=== PATIENT | female | born 1970 | race Hispanic/Latino ===

== ENCOUNTER 2024-08-13 22:08 | Observation (INO) | payer SELFPAY ==
[~2024-08-13 22:08] MED LIST: Iopamidol 370 76% 100 ML VIAL ONE
[2024-08-13 22:42] LABS: #Basophils 0.04 10x3/uL (0.0-0.2); #Eosinphils 0.15 10x3/uL (0.0-0.5); #Neutrophils 2.89 10x3/uL (1.5-8.4); %Basophils 0.8 % (0.0-2.0); %Eosinophils 2.8 % (0.0-6.0); %Lymphocytes 32.5 % (18.0-47.0); %Monocytes 9.4 % (0.0-10.0); %Neutrophils 54.3 % (40.0-75.0); Hematocrit 41.3 % (34.9-44.5); Hemoglobin 14.8 g/dL (12.0-15.5); Mean Corpuscular HGB CONC 35.8 g/dL (32.0-36.0); Mean Corpuscular Hemoglobin 31.9 pg (27.0-33.0); Mean Platelet Volume 12.8 fL (7.4-10.4); Platelet Count 169 10x3/uL (150-450); RBC Distribution Width 12.9 % (11.5-14.5); Red Blood Cell (RBC) Count 4.64 10x6/uL (3.90-5.03); White Blood Cell (WBC) Count 5.3 10x3/uL (3.5-10.5)
[2024-08-13 22:52] LABS: PTT 28.5 sec (22.0-33.0); Prothrombin Time 11.1 sec (9.5-12.1)
[2024-08-13 23:03] LABS: ALT (SGPT) 36 U/L (8-55); AST (SGOT) 31 U/L (5-34); Albumin 3.8 g/dL (3.5-5.0); Alkaline Phosphatase 76 U/L (40-110); Anion Gap 15 mmol/L (10-20); BUN (Urea Nitrogen) 19 mg/dL (9.8-20.1); Bilirubin, Total 0.4 mg/dL (0.2-1.2); Calc. Creatinine Clearance 0 mL/min (70-130); Calcium 9.9 mg/dL (7.8-10.44); Carbon Dioxide 22 mmol/L (22-29); Chloride 100 mmol/L (98-107); Estimated GFR 78; Globulin 5.6 g/dL (2.4-3.5); Glucose 121 mg/dL (70-105); Potassium 3.8 mmol/L (3.5-5.1); Protein, Total 9.4 g/dL (6.0-8.3); Sodium 133 mmol/L (136-145)
[2024-08-13] MEDS ORDERED: niCARdipine 25 MG/10 ML SDV ONE (23:35)
[2024-08-13 23:41] LABS: Bilirubin Neg (Negative); Blood, Urine Negative (Negative); Clarity Clear (Clear); Glucose, Urine (Dipstick) Normal (Negative); Ketone, Urine Negative (Negative); Leukocyte Negative (Negative); Nitrite Negative (Negative); Protein, Urine (Dipstick) 100 mg/dl (Neg-Trace); Urobilinogen Normal mg/dL (Less than 2); pH, Urine 6.5 (5.0-9.0)
[2024-08-14 00:03] LABS: Bacteria/HPF Rare-Few HPF (None Seen); CAUTI Indications for Culture Alt mental st,lethar; RBC/HPF 0-3 HPF (0-3); Squamous Epithelial 0-3 HPF (0-3); WBC/HPF 0-3 HPF (0-3)
[2024-08-14 00:04] LABS: Urine Culture Reflex No No
[2024-08-14] MEDS ORDERED: Acetaminophen 325 MG TAB ONE (00:58)
[2024-08-14] MEDS ORDERED: Dextrose 5% in Water 1,000 ML IV PRN (02:53)
[2024-08-14] MEDS ORDERED: Dextrose 50% Abboject 50 ML SYRINGE SLOW IVP PRN (02:53)
[2024-08-14] MEDS ORDERED: Glucagon 1 MG/ML KIT IM PRN (02:53)
[2024-08-14] MEDS ORDERED: Aspirin Chewable 81 MG TAB ONE (03:45)
[2024-08-14] MEDS ORDERED: Potassium Chloride 20 MEQ TAB ONE (03:46)
[2024-08-14] MEDS: Aspirin Chewable 81 MG TAB PO SCH (03:57)
[2024-08-14] MEDS: Artificial Tear Ophth Sol 15 ML BOT L EYE SCH (03:57)
[2024-08-14] MEDS: Potassium Chloride 20 MEQ TAB PO SCH (03:57)
[2024-08-14 05:30] LABS: #Basophils 0.04 10x3/uL (0.0-0.2); #Eosinphils 0.17 10x3/uL (0.0-0.5); #Monocytes 0.51 10x3/uL (0.0-1.1); #Neutrophils 3.13 10x3/uL (1.5-8.4); %Basophils 0.7 % (0.0-2.0); %Eosinophils 3.2 % (0.0-6.0); %Lymphocytes 27.5 % (18.0-47.0); %Monocytes 9.6 % (0.0-10.0); %Neutrophils 58.6 % (40.0-75.0); Hematocrit 37.9 % (34.9-44.5); Hemoglobin 13.7 g/dL (12.0-15.5); Mean Corpuscular HGB CONC 36.1 g/dL (32.0-36.0); Mean Corpuscular Volume 88.6 fL (81.6-98.3); Platelet Count 157 10x3/uL (150-450); RBC Distribution Width 13.1 % (11.5-14.5); Red Blood Cell (RBC) Count 4.28 10x6/uL (3.90-5.03); White Blood Cell (WBC) Count 5.3 10x3/uL (3.5-10.5)
[2024-08-14 06:31] LABS: Anion Gap 13 mmol/L (10-20); BUN (Urea Nitrogen) 20 mg/dL (9.8-20.1); Calc. Creatinine Clearance 0 mL/min (70-130); Calcium 9.1 mg/dL (7.8-10.44); Carbon Dioxide 23 mmol/L (22-29); Cardiac Risk 7.2 (Less than 4.5); Chloride 103 mmol/L (98-107); Cholesterol 159 mg/dl (< 200 Desired); Estimated GFR 89; Glucose 128 mg/dL (70-105); HDL Cholesterol 22 mg/dL (>60 Neg Risk); Potassium 3.8 mmol/L (3.5-5.1); Sodium 135 mmol/L (136-145); Triglycerides 557 mg/dL (Less than 150)
[2024-08-14] MEDS: Levothyroxine Sodium 100 MCG TAB PO SCH (06:43)
[2024-08-14] MEDS ORDERED: Enoxaparin 40 MG (0.4 mL) SYRINGE ONE (08:03)
[2024-08-14] MEDS ORDERED: predniSONE 20 MG TAB ONE (08:03)
[2024-08-14] MEDS ORDERED: Aspirin 81 mg Enteric Coated Tablet ONE (08:04)
[2024-08-14] MEDS: Aspirin 81 mg Enteric Coated Tablet PO SCH (09:45)
[2024-08-14] MEDS: Lisinopril 20 MG TAB PO SCH (09:46)
[2024-08-14] MEDS: Enoxaparin 40 MG (0.4 mL) SYRINGE SC SCH (09:46)
[2024-08-14] MEDS: Hydrochlorothiazide 25 MG TAB PO SCH (09:46)
[2024-08-14] MEDS: predniSONE 20 MG TAB PO SCH (11:45)
[2024-08-14 14:10] LABS: Hemoglobin A1c 5.8 % (4.0-6.0)
[2024-08-14 15:38] VITALS: BMI 29.2
[2024-08-14] MEDS: valACYclovir 500 MG TAB PO SCH (16:00)
[2024-08-14] MEDS ORDERED: Artificial Tear Ophth Sol 15 ML BOT L EYE SCH (17:00)
[2024-08-14] MEDS: FLU (Fluarix Triv) TS24-25(6MOS UP)/PF 45 MCG/0.5 ML Syringe IM ONE (17:11)
[2024-08-14] MEDS: Insulin Lispro 100 UNIT/ML 10 ML VIAL SC PRN (17:19)
[2024-08-14] MEDS: Acetaminophen 325 MG TAB PO PRN (21:34)
[2024-08-15 16:49] VITALS: BP 145/50; TEMP 98.8
[2024-08-16] MEDS ORDERED: Levothyroxine Sodium 125 MCG TAB PO SCH (06:00)
== END 2024-08-15 18:20 | disposition home or self-care (01) ==
LOC: CSHERS 22:08 → CSHERHOLD 08-14 02:45 → CSHTELE 08-14 15:14
PROVIDERS: ADMIT Family Medicine; ATTEND Family Medicine
DX: G51.0 Bell's palsy (principal); R51.9 Headache, unspecified; I16.0 Hypertensive urgency; E03.9 Hypothyroidism, unspecified; R73.02 Impaired glucose tolerance (oral); Z79.890 Hormone replacement therapy; Z79.899 Other long term (current) drug therapy
CPT/HCPCS: 0042T; 36415; 36416; 70450; 70551; 80048; 80053; 80061; 81001; 83036; 83735; 84439; 84443; 85025; 85610; 85730; 90656; 93005; 96365; 96372; G0378; J1650; J1815; J7512; Q9967